=== PATIENT | female | born 1975 | race Caucasian/White ===

== ENCOUNTER 2017-09-03 10:45 | Emergency (ER) | payer OTHER ==
[~2017-09-03] VITALS: Ht 162.5 cm; Wt 63.5 kg
[~2017-09-03 10:45] MED LIST: CATAFLAM50 MG PO
[2017-09-03 11:24] LABS: BASO # 0.1 10*3/uL (0.0-0.1); EOS # 0.2 10*3/uL (0.0-0.4); EOS % 1.9 % (1.0-4.0); HEMATOCRIT 38.7 % (37.0-47.0); LYMPH # 2.4 10*3/uL (1.3-4.4); LYMPH % 29.5 % (27.0-41.0); MEAN CELL VOLUME 97.7 fl (81.0-99.0); MEAN CORPUSCULAR HGB 32.8 pg (27.0-31.0); MEAN CORPUSCULAR HGB CONC 33.6 g/dl (33.0-37.0); MEAN PLATELET VOLUME 9.1 fl (9.6-12.3); MONO # 0.9 10*3/uL (0.1-1.0); MONO % 10.9 % (3.0-9.0); NEUT # 4.5 10*3/uL (2.3-7.9); NEUT % 56.4 % (47.0-73.0); PLATELET COUNT AUTOMATED 338 10*3/uL (130-400); RED BLOOD COUNT 3.96 10*6/uL (4.10-5.10); RED CELL DISTRI WIDTH 12.9 % (0-14.5)
[2017-09-03 11:30] LABS: BILIRUBIN NEGATIVE (NEGATIVE); BLOOD NEGATIVE (NEGATIVE); CLARITY CLEAR (CLEAR); COLOR YELLOW (YELLOW); GLUCOSE NEGATIVE (NEGATIVE); KETONE NEGATIVE (NEGATIVE); LEUKO ESTERASE NEGATIVE (NEGATIVE); NITRITE POSITIVE (NEGATIVE); PH 6.5 (5.0-9.0); UROBILINOGEN 0.2 E.U./dl (0.2-1.0)
[2017-09-03 11:33] LABS: ACT PARTIAL THROMBO TIME 25.6 SECONDS (20.8-31.5); INTERNATIONAL NORM RATIO 0.9 (2.0-3.5)
[2017-09-03 11:37] LABS: BACTERIA 2+
[2017-09-03 11:40] LABS: ALBUMIN 3.8 gm/dl (3.1-4.5); ALKALINE PHOSPHATASE 57 U/L (45-117); BUN 10 mg/dl (7-24); CHLORIDE 103 mmol/L (98-107); CREATININE 0.74 mg/dL (0.55-1.02); POTASSIUM 3.8 mmol/L (3.5-5.1); SGOT/AST 17 IU/L (3-35); SGPT/ALT 20 U/L (12-78); SODIUM 137 mmol/L (136-145); TOTAL PROTEIN 8.3 gm/dL (6.4-8.2)
[2017-09-03 11:49] LABS: B-hCG (QUALITATIVE) NEGATIVE (NEGATIVE)
== END 2017-09-03 12:25 | disposition home or self-care (01) ==
LOC: ED 10:45
PROVIDERS: Emergency Medicine
DX: N93.8 Other specified abnormal uterine and vaginal bleeding (principal)

== ENCOUNTER 2017-11-10 15:00 | Emergency (ER) | payer OTHER ==
[~2017-11-10] VITALS: Ht 162.5 cm; Wt 61.2 kg
[2017-11-10] MEDS ORDERED: NORCO 5-325 TA1 EACH PO (15:23)
[2017-11-10] MEDS ORDERED: CEPHALEXIN500 M1 PO (15:23)
[2017-11-10] MEDS ORDERED: SEPTDS PO (15:23)
== END 2017-11-10 15:50 | disposition home or self-care (01) ==
LOC: ED 15:00
DX: L02.214 Cutaneous abscess of groin (principal)

== ENCOUNTER 2018-10-28 12:19 | Emergency (ER) | payer OTHER ==
[~2018-10-28] VITALS: Ht 162.5 cm; Wt 64.9 kg
[~2018-10-28 12:19] MED LIST changes: +CEPHALEXIN500 M1 PO; +NORCO 5-325 TA1 EACH PO; +SEPTDS PO
[2018-10-28 12:41] LABS: BASO # 0.1 10*3/uL (0.0-0.1); BASO % 0.8 % (0.0-1.0); EOS # 0.1 10*3/uL (0.0-0.4); EOS % 1.4 % (1.0-4.0); HEMATOCRIT 38.6 % (37.0-47.0); HEMOGLOBIN 12.6 g/dl (12.0-16.0); LYMPH # 2.8 10*3/uL (1.3-4.4); LYMPH % 32.7 % (27.0-41.0); MEAN CORPUSCULAR HGB CONC 32.6 g/dl (33.0-37.0); MEAN PLATELET VOLUME 9.3 fl (9.6-12.3); MONO # 0.5 10*3/uL (0.1-1.0); NEUT % 58.7 % (47.0-73.0); PLATELET COUNT AUTOMATED 295 10*3/uL (130-400); RED BLOOD COUNT 3.94 10*6/uL (4.10-5.10); RED CELL DISTRI WIDTH 13.1 % (0-14.5); WHITE BLOOD COUNT 8.5 10*3/uL (4.8-10.8)
[2018-10-28 12:50] LABS: ACT PARTIAL THROMBO TIME 23.5 SECONDS (20.8-31.5); INTERNATIONAL NORM RATIO 0.9 (2.0-3.5)
[2018-10-28 12:56] LABS: ALBUMIN 3.2 gm/dl (3.1-4.5); ALKALINE PHOSPHATASE 53 U/L (45-117); BUN 7 mg/dl (7-24); CHLORIDE 109 mmol/L (98-107); CREATININE 0.69 mg/dL (0.55-1.02); POTASSIUM 3.5 mmol/L (3.5-5.1); SGOT/AST 14 IU/L (3-35); SGPT/ALT 17 U/L (12-78); SODIUM 139 mmol/L (136-145); TOTAL PROTEIN 7.5 gm/dL (6.4-8.2)
[2018-10-28 12:58] LABS: B-hCG (QUALITATIVE) NEGATIVE (NEGATIVE)
[2018-10-28 13:24] LABS: BILIRUBIN NEGATIVE (NEGATIVE); BLOOD 3+ (NEGATIVE); CLARITY SL CLOUDY (CLEAR); COLOR YELLOW (YELLOW); GLUCOSE NEGATIVE (NEGATIVE); KETONE NEGATIVE (NEGATIVE); LEUKO ESTERASE NEGATIVE (NEGATIVE); NITRITE NEGATIVE (NEGATIVE); UROBILINOGEN 0.2 E.U./dl (0.2-1.0)
[2018-10-28 13:47] LABS: BACTERIA TRACE; EPITHELIAL CELLS 15-20
== END 2018-10-28 14:13 | disposition home or self-care (01) ==
LOC: ED 12:19
PROVIDERS: Emergency Medicine
DX: N94.6 Dysmenorrhea, unspecified (principal); F17.200 Nicotine dependence, unspecified, uncomplicated; Z79.2 Long term (current) use of antibiotics

== ENCOUNTER → 2018-11-07 | Outpatient (CLI) | payer OTHER | END | disposition home or self-care (01) | LOC: MAMMO 09:00 | DX: N63.11 Unspecified lump in the right breast, upper outer quadrant (principal); N64.9 Disorder of breast, unspecified ==

== ENCOUNTER 2020-10-14 06:43 | Emergency (ER) | payer OTHER ==
[~2020-10-14] VITALS: Ht 165.1 cm; Wt 68.0 kg
[2020-10-14] MEDS ORDERED: CYCLOBENZAPRINE10 MG PO (10:14)
[2020-10-14] MEDS ORDERED: PREDNISONE10 MG PO (10:14)
[2020-10-14] MEDS ORDERED: HYDROCODONE-AC1 EAC1 PO (10:14)
== END 2020-10-14 10:20 | disposition home or self-care (01) ==
LOC: ED 06:43
DX: M54.6 Pain in thoracic spine (principal); M54.5 Low back pain; Z79.899 Other long term (current) drug therapy

== ENCOUNTER 2022-03-01 03:02 | Emergency (ER) | payer OTHER ==
[~2022-03-01 03:02] MED LIST changes: +CYCLOBENZAPRINE10 MG PO; +HYDROCODONE-AC1 EAC1 PO; +PREDNISONE10 MG PO
[2022-03-01] MEDS ORDERED: AMOXICILLIN500 M2 PO (03:50)
== END 2022-03-01 03:47 | disposition home or self-care (01) ==
LOC: ED 03:02
DX: J02.9 Acute pharyngitis, unspecified (principal)

== ENCOUNTER 2023-12-18 03:39 | Emergency (ER) | payer SELFPAY ==
[~2023-12-18] VITALS: Ht 162.5 cm; Wt 56.7 kg
[~2023-12-18 03:39] MED LIST changes: +AMOXICILLIN500 M2 PO
[2023-12-18] MEDS ORDERED: Acetaminophen/Hydrocodone 5 MG/325 MG TABLET PO ONE (03:55)
[2023-12-18] MEDS ORDERED: PENICILLIN V POTASSIUM 500 MG TAB PO ONE (03:55)
[2023-12-18] MEDS ORDERED: Ondansetron Hydrochloride 4 MG TAB SL ONE (03:55)
[2023-12-18] MEDS ORDERED: PENICILLIN VK500 MG PO (03:57)
== END 2023-12-18 04:03 | disposition home or self-care (01) ==
LOC: ED 03:39
DX: K02.9 Dental caries, unspecified (principal); Z79.2 Long term (current) use of antibiotics; Z79.899 Other long term (current) drug therapy